=== PATIENT | female | born 1995 | race Caucasian/White ===

== ENCOUNTER 2018-05-01 12:08 | Emergency (ER) | payer OTHER, MEDICAID, SELFPAY ==
[2018-05-01 12:18] VITALS: BP 161/106; PULSE 98; RESP 14; TEMP 36.9; O2SAT 97; BMI 45.3
--- NOTE | 2018-05-01 12:22 | DI.RAD.S_ITS ---
PROCEDURE: XR SHOULDER LT MIN 2V INDICATIONS: GLF onto bilateral shoulder, Right hurts more than Left. TECHNIQUE: 3 views of the shoulder were acquired. COMPARISON: None. FINDINGS: Bones: No fractures or dislocations. No suspicious bony lesions. Visualized ribs appear intact. Soft tissues: No suspicious soft tissue calcifications. IMPRESSION: No acute osseous abnormality of the left shoulder. Dictated by: Kalpesh Fisher M.D. on 05/01/2018 at 11:48 Approved by: Kalpesh Fisher M.D. on 05/01/2018 at 11:48
--- NOTE | 2018-05-01 12:22 | DI.RAD.S_ITS ---
PROCEDURE: XR SHOULDER RT MIN 2V INDICATIONS: GLF onto bilateral shoulder, Right hurts more than Left. TECHNIQUE: 3 views of the shoulder were acquired. COMPARISON: None. FINDINGS: Bones: No fractures or dislocations. No suspicious bony lesions. Visualized ribs appear intact. No significant degenerative changes are evident. Soft tissues: No suspicious soft tissue calcifications. IMPRESSION: No acute osseous abnormality of the right shoulder. Dictated by: Kalpesh Fisher M.D. on 05/01/2018 at 11:48 Approved by: Kalpesh Fisher M.D. on 05/01/2018 at 11:49
--- NOTE | 2018-05-01 13:50 | ED.UPPEXIN ---
HPI - Extremity Injury (Upper) <CIERRA Nj - Last Filed: 05/01/18 21:30> General Chief Complaint: Extremity Injury, Upper Stated Complaint: fell in shower, right shoulder pain Time Seen by Provider: 05/01/18 13:30 History of Present Illness HPI narrative: 22-year-old female with history of type 2 diabetes and everyday smoker for complaint of pain into her bilateral shoulders since yesterday. She states that she slipped in the shower causing her to fall landing on head and to her bilateral shoulders she reports pain into the posterior right and left shoulders. She states that she did hit her head and she thinks she did lose consciousness briefly. She denies any nausea or vomiting. She is ambulatory into the emergency room. She denies any stressors or relievers of her discomfort. She denies having a headache today. She does report having some neck pain after the fall as well. MD complaint: injury to: shoulder Related Data Home Medications Medication Instructions Recorded Confirmed Allergy Medication 1 dose PO PRN PRN 05/01/18 05/01/18 glipizide 10 mg PO BID 05/01/18 05/01/18 metformin 500 mg PO TID 05/01/18 05/01/18 sertraline 50 mg PO BID 05/01/18 05/01/18 Allergies Allergy/AdvReac Type Severity Reaction Status Date / Time No Known Drug Allergies Allergy Verified 05/01/18 12:22 Review of Systems <CIERRA Nj - Last Filed: 05/01/18 21:30> Constitutional Denies chills, Denies fever(s), Denies lethargy and Denies weakness Eyes Denies change in vision, Denies eye discharge, Denies irritation and Denies loss of vision ENT Ears, Nose, Mouth, and Throat: Denies change in voice, Denies neck pain and Denies sore throat Cardiovascular Denies chest pain, Denies irregular heart rhythm, Denies lightheadedness, Denies palpitations, Denies dyspnea, Denies dyspnea on exertion and Denies orthopnea Respiratory Denies cough, Denies dyspnea, Denies dyspnea on exertion and Denies wheezing Gastrointestinal Gastrointestinal: Denies abdominal pain, Denies change in bowel habits, Denies diarrhea, Denies nausea and Denies vomiting Genitourinary Denies hematuria, Denies flank pain, Denies urinary incontinence and Denies urinary urgency Musculoskeletal Denies neck pain Comments: Bilateral shoulder pain after ground level fall posterior neck pain after ground level fall Integumentary/Breasts Denies pruritus, Denies erythema, Denies rash and Denies wounds Neurologic Denies confusion, Denies loss of vision and Denies weakness Comments: ground level fall hitting head. Psychiatric Denies anxiety, Denies confusion, Denies depression, Denies homicidal ideation and Denies suicidal ideation Endocrine Denies palpitations Hematologic/Lymphatic Denies easy bruising Allergic/Immunologic Denies wheezing Exam <CIERRA Nj - Last Filed: 05/01/18 21:30> Initial Vital Signs Initial Vital Signs: Vital Signs Temperature 98.5 F 05/01/18 12:18 Pulse Rate 98 H 05/01/18 12:18 Respiratory Rate 14 05/01/18 12:18 Blood Pressure 161/106 H 05/01/18 12:18 Pulse Oximetry 97 05/01/18 12:18 Const General: cooperative and well developed Nutritional Appearance: well nourished Orientation: alert, awake, oriented x3 and not confused HENAZ Mouth: oral mucosae normal and oropharynx normal Throat: abnormal tonsil ( Enlarged tonsils) bilaterally Eyes Conjunctivae: conjunctivae normal Sclera: sclerae normal Pupils: PERRL EOM: EOM intact bilaterally Resp Effort & Inspection: normal respiratory effort, able to speak in complete sentences, no respiratory distress and no use of accessory muscles Auscultation: clear to auscultation bilaterally, no rales, no rhonchi and no wheezes Cardio Rate: regular rate Rhythm: regular rhythm Heart Sounds: no click, no gallops, no murmurs and no rubs Pulses: normal peripheral pulses Skin General: no rashes or lesions noted, No jaundice and No petechiae Neuro General: alert, oriented x3, gait normal and no focal motor deficits Speech: speech normal Extrem Other: bilateral shoulders with no signs of trauma. No deformities. Distal CMS is intact. Distal pulses are intact. Distal sensation is intact. <Randy Morton DO - Last Filed: 05/02/18 08:49> Initial Vital Signs Initial Vital Signs: Vital Signs Temperature 98.5 F 05/01/18 12:18 Pulse Rate 98 H 05/01/18 12:18 Respiratory Rate 14 05/01/18 12:18 Blood Pressure 161/106 H 12/07/18 12:18 Pulse Oximetry 97 05/01/18 12:18 Course <CIERRA Nj - Last Filed: 05/01/18 21:30> Orders Ordered: ED Orders 05/01/18 14:14 CT cervical spine wo con Stat CT head/brain wo con Stat Vital Signs - 8 hr 05/01/18 14:11 05/01/18 15:20 Pulse Rate 106 H 98 H Respiratory Rate 16 18 Blood Pressure [Left Arm] 141/88 H Pulse Oximetry 98 100 <Randy Morton DO - Last Filed: 05/02/18 08:49> Orders Ordered: ED Orders 05/01/18 14:14 CT cervical spine wo con Stat CT head/brain wo con Stat Vital Signs - 8 hr 05/01/18 14:11 05/01/18 15:20 Pulse Rate 106 H 98 H Respiratory Rate 16 18 Blood Pressure [Left Arm] 141/88 H Pulse Oximetry 98 100 MDM - Extremity Injury (Upper) <CIERRA Nj - Last Filed: 05/01/18 21:30> Imaging Data c spine: Radiologist's impression: [address] [place] [address] CT Scan Report Signed Patient: Alma Bergman#: [id number] : 1995Acct:[id number] Age/Sex: 22 / FDate of Service: 05/01/18 Loc: ED Accession Number: [id number] Procedure: CT cervical spine wo con Ordering Provider: Perry Izaguirre PROCEDURE: CT CERVICAL SPINE WO CON INDICATIONS: pain to midline of C-spine after ground level fall last nig TECHNIQUE: Noncontrast 3 mm thick sections acquired from the skull base to the T4 level. Sagittal and coronal reformats were then constructed. For radiation dose reduction, the following was used: automated exposure control, adjustment of mA and/or kV according to patient size. COMPARISON: None. FINDINGS: Image quality: Excellent. Bones: No fractures or dislocations. Visualized superior ribs are intact. Soft tissues: Prevertebral soft tissues are normal in thickness. No paravertebral hematomas. No apical pneumothoraces. Marked prominence of the palatine tonsils. Multiple mildly enlarged bilateral level II, level III and level IV neck lymph nodes are noted. Enlarged left level V lymph nodes are noted. IMPRESSION: 1. No fracture. No acute osseous lesion. If symptoms and/or clinical suspicion for pathology persists, evaluation with MRI may be helpful for further assessment. 2. Prominent bilateral palatine tonsils which could be inflammatory or neoplastic. 3. Bilateral level II, level III, level IV and right level V neck lymphadenopathy which could be reactive or neoplastic. Dictated by: Evelyn David MD, PhD on 05/01/2018 at 14:32 Approved by: Evelyn David MD, PhD on 05/01/2018 at 14:39 L shoulder: Radiologist's impression: [facility]igned [facility] [id number] : 1995Acct:[id number] Age/Sex: 22 / FDate of Service: 05/01/18 Loc: ED Accession Number: [id number] Procedure: XR shoulder LT min 2V Ordering Provider: Randy Morton D.O. PROCEDURE: XR SHOULDER LT MIN 2V INDICATIONS: GLF onto bilateral shoulder, Right hurts more than Left. TECHNIQUE: 3 views of the shoulder were acquired. COMPARISON: None. FINDINGS: Bones: No fractures or dislocations. No suspicious bony lesions. Visualized ribs appear intact. Soft tissues: No suspicious soft tissue calcifications. IMPRESSION: No acute osseous abnormality of the left shoulder. Dictated by: Kalpesh Fisher M.D. on 05/01/2018 at 11:48 Approved by: Kalpesh Fisher M.D. on 05/01/2018 at 11:48 R shoulder: Radiologist's impression: [address] [address] XRay Report Signed [facility] [id number] : 1995Acct:[id number] Age/Sex: 22 / FDate of Service: 05/01/18 Loc: ED Accession Number: [id number] Procedure: XR shoulder RT min 2V Ordering Provider: Randy Morton D.O. PROCEDURE: XR SHOULDER RT MIN 2V INDICATIONS: GLF onto bilateral shoulder, Right hurts more than Left. TECHNIQUE: 3 views of the shoulder were acquired. COMPARISON: None. FINDINGS: Bones: No fractures or dislocations. No suspicious bony lesions. Visualized ribs appear intact. No significant degenerative changes are evident. Soft tissues: No suspicious soft tissue calcifications. IMPRESSION: No acute osseous abnormality of the right shoulder. Dictated by: Kalpesh Fisher M.D. on 05/01/2018 at 11:48 Approved by: Kalpesh Fisher M.D. on 05/01/2018 at 11:49 CT scan - head: Radiologist's impression: [address] [place] [address] [id number] [address] Scan Report Signed Patient: Alma Bergman#: [id number] : 1995Acct:[id number] Age/Sex: 22 / FDate of Service: 05/01/18 Loc: ED Accession Number: [id number] Procedure: CT head/brain wo con Ordering Provider: Perry Izaguirre PROCEDURE: CT HEAD/BRAIN WO CON INDICATIONS: ground level fall last night hitting head with loss of cons TECHNIQUE: Noncontrast 4.5 mm thick angled axial sections acquired from the foramen magnum to the vertex, with coronal and sagittal reformats. For radiation dose reduction, the following was used: automated exposure control, adjustment of mA and/or kV according to patient size. COMPARISON: None. FINDINGS: Image quality: Excellent. CSF spaces: Basal cisterns are patent. No extra-axial fluid collections. Ventricles are normal in size and shape. Brain: No midline shift. No intracranial masses or hemorrhage. Harding-white matter interface is normal. Skull and face: Calvarium and visualized facial bones are intact, without suspicious lesions. Sinuses: Mucosal thickening noted in the maxillary sinuses bilaterally and the right sphenoid sinus. The mastoids are clear. IMPRESSION: No acute intracranial disease process. Dictated by: Evelyn David MD, PhD on 05/01/2018 at 14:30 Approved by: Evelyn David MD, PhD on 05/01/2018 at 14:32 [facility] Narrative Medical decision making narrative: X-rays of the left right shoulder were obtained were negative for any acute findings. Due to head injury and a possible loss of consciousness head CT was obtained was negative for any acute findings. Patient had pain to her midline neck and a CT of the C-spine was obtained and was negative for any acute fractures however CT does show multiple significant lymphadenopathy to the neck area. Patient states she has had a sore throat over the past couple of days and does have allergies. She denies any fevers or chills. Discussed case with ENT Dr. Castellanos will follow up with patient next week. Patient to call the office and schedule follow-up appointment. For any worsening symptoms return emergency room. Use [id number] Tylenol as needed for any discomfort. Discharge Plan Departure Patient Disposition: Home Clinical Impression: Fall from ground level, Minor head injury with loss of consciousness, Contusion of right shoulder Discharge Date/Time: 05/01/18 15:21 Interventions: ED Discharge Assessment Last Done: 05/01/18 15:20 Instructions: DI for Closed Head Injury Activity Restrictions/Additional Instructions: x-rays of the shoulders were obtained were negative for any acute findings. CT of the head was obtained was also negative for any acute findings. Neck CT was obtained and showed no acute fractures. The CT of the neck does show multiple areas of swollen lymph nodes. you referred to ENT for further evaluation and treatment. Call the number at the number provided to schedule follow-up appointment next week. Use [id number] Tylenol as needed for any discomfort. For any worsening symptoms return emergency room. Head injury instructions are provided with warning signs to return to the emergency room. Prescriptions: No Action Allergy Medication 1 dose PO PRN PRN (Reason: Allergy Symptoms) RF: 0 metformin 500 mg Tablet 500 mg PO TID RF: 0 glipizide 10 mg Tablet 10 mg PO BID RF: 0 sertraline 100 mg Tablet 50 mg PO BID RF: 0 Referrals: Mendez Castellanos MD [Physician] - Stand Alone Forms: Work Release Note <Randy Morton DO - Last Filed: 05/02/18 08:49> Cosign ED Attending Joanneature Attestation: I was immediately available in the department for consultation. Documentation has been reviewed. I agree with assessment and plan.
[2018-05-01 14:11] VITALS: BP 141/88; PULSE 106; RESP 16; O2SAT 98
--- NOTE | 2018-05-01 14:14 | DI.CT.S_ITS ---
PROCEDURE: CT CERVICAL SPINE WO CON INDICATIONS: pain to midline of C-spine after ground level fall last nig TECHNIQUE: Noncontrast 3 mm thick sections acquired from the skull base to the T4 level. Sagittal and coronal reformats were then constructed. For radiation dose reduction, the following was used: automated exposure control, adjustment of mA and/or kV according to patient size. COMPARISON: None. FINDINGS: Image quality: Excellent. Bones: No fractures or dislocations. Visualized superior ribs are intact. Soft tissues: Prevertebral soft tissues are normal in thickness. No paravertebral hematomas. No apical pneumothoraces. Marked prominence of the palatine tonsils. Multiple mildly enlarged bilateral level II, level III and level IV neck lymph nodes are noted. Enlarged left level V lymph nodes are noted. IMPRESSION: 1. No fracture. No acute osseous lesion. If symptoms and/or clinical suspicion for pathology persists, evaluation with MRI may be helpful for further assessment. 2. Prominent bilateral palatine tonsils which could be inflammatory or neoplastic. 3. Bilateral level II, level III, level IV and right level V neck lymphadenopathy which could be reactive or neoplastic. Dictated by: Evelyn David MD, PhD on 05/01/2018 at 14:32 Approved by: Evelyn David MD, PhD on 05/01/2018 at 14:39
--- NOTE | 2018-05-01 14:14 | DI.CT.S_ITS ---
PROCEDURE: CT HEAD/BRAIN WO CON INDICATIONS: ground level fall last night hitting head with loss of cons TECHNIQUE: Noncontrast 4.5 mm thick angled axial sections acquired from the foramen magnum to the vertex, with coronal and sagittal reformats. For radiation dose reduction, the following was used: automated exposure control, adjustment of mA and/or kV according to patient size. COMPARISON: None. FINDINGS: Image quality: Excellent. CSF spaces: Basal cisterns are patent. No extra-axial fluid collections. Ventricles are normal in size and shape. Brain: No midline shift. No intracranial masses or hemorrhage. Harding-white matter interface is normal. Skull and face: Calvarium and visualized facial bones are intact, without suspicious lesions. Sinuses: Mucosal thickening noted in the maxillary sinuses bilaterally and the right sphenoid sinus. The mastoids are clear. IMPRESSION: No acute intracranial disease process. Dictated by: Evelyn David MD, PhD on 05/01/2018 at 14:30 Approved by: Evelyn David MD, PhD on 05/01/2018 at 14:32
[2018-05-01 15:20] VITALS: PULSE 98; RESP 18; O2SAT 100
== END 2018-05-01 15:21 | disposition home or self-care (01) ==
PROVIDERS: Emergency Provider Nurse Practitioner Family
DX: S06.9X9A Unspecified intracranial injury with loss of consciousness of unspecified duration, initial encounter (principal); S40.011A Contusion of right shoulder, initial encounter; W18.2XXA Fall in (into) shower or empty bathtub, initial encounter
CPT/HCPCS: 70450; 72125; 73030; 99283; 99284; 99291

== ENCOUNTER 2019-03-18 10:47 | Emergency (ER) | payer OTHER, MEDICAID, SELFPAY ==
[2019-03-18 10:55] VITALS: BP 125/83; PULSE 84; RESP 14; TEMP 36.7; O2SAT 98; BMI 44.2
--- NOTE | 2019-03-18 10:55 | DI.RAD.S_ITS ---
PROCEDURE: XR WRIST LT MIN 3V INDICATIONS: pain TECHNIQUE: 4 views of the wrist were acquired. COMPARISON: None. FINDINGS: Bones: No displaced fractures or dislocations. No suspicious bony lesions. Ulnar minus appearance is incidentally noted by approximately 3 mm. Soft tissues: No suspicious soft tissue calcifications. IMPRESSION: No acute fractures of the wrist. Dictated by: Kalpesh Fisher M.D. on 03/18/2019 at 10:17 Approved by: Kalpesh Fisher M.D. on 03/18/2019 at 10:19
--- NOTE | 2019-03-18 11:07 | ED.UPPEXIN ---
HPI - Extremity Injury (Upper) <Nusrat Reaves PA-C - Last Filed: 03/18/19 20:24> General Chief Complaint: Extremity Injury, Upper Stated Complaint: hurt wrist Time Seen by Provider: 03/18/19 11:06 Source: patient Mode of arrival: Ambulatory Limitations: no limitations History of Present Illness HPI narrative: This 23-year-old female comes to ED secondary to left wrist injury that occurred 2 days ago. She states that she tripped fell hitting her outstretched left wrist on a metal counter. She states that she thought it was just contused however she has developed a painful lump and concerned about a fracture. She states initially she was unable to move her thumb but now able to. She states that she does not have any weakness or paresthesia, pain keeps her from moving. She did take naproxen 1st day which was helpful. She reports her tetanus vaccine is up-to-date. She denies any other injury, no pain in the fingers or upper arm. She denies any possibility . Related Data Home Medications Medication Instructions Recorded Confirmed Allergy Medication 1 dose PO PRN PRN 05/01/18 05/01/18 glipizide 10 mg PO BID 05/01/18 05/01/18 metformin 500 mg PO TID 05/01/18 05/01/18 sertraline 50 mg PO BID 05/01/18 05/01/18 Previous Rx's Medication Instructions Recorded naproxen 500 mg PO Q12H PRN #20 tab 03/18/19 Allergies Allergy/AdvReac Type Severity Reaction Status Date / Time No Known Drug Allergies Allergy Verified 03/18/19 10:55 Review of Systems <Nusrat Reaves PA-C - Last Filed: 03/18/19 20:24> Review of Systems ROS Unobtainable: All systems reviewed & are unremarkable except as noted in HPI and below Patient History <Nusrat Reaves PA-C - Last Filed: 03/18/19 20:24> Medical History (Updated 03/18/19 @ 11:38 by Nusrat Reaves PA-C) Anxiety and depression (Inactive) Non-insulin dependent type 2 diabetes mellitus (Inactive) Surgical History (Updated 03/18/19 @ 11:22 by Nusrat Reaves PA-C) No history of previous surgery (Chronic) Social History Smoking Status: Current every day smoker alcohol intake frequency: 0-2 drinks per day Substance Use Type: marijuana Exam <uNsrat Reaves PA-C - Last Filed: 03/18/19 20:24> Narrative Exam Narrative: GENERAL APPEARANCE: Patient sitting comfortably, in no distress. MUSCULOSKELETAL: Left anterior wrist lateral midline there is a tender area of soft tissue swelling with marked overlying tenderness. Reduced wrist range of motion in all holloway secondary to tenderness. She has full range of motion of the fingers. Some slightly reduced but thumb tendon strength intact in all holloway against resistance. No tenderness over the hand, forearm or elbow where there is full range of motion. DERM: L. wrist midline lateral small scab and faint ecchymoses. No other visible skin lesions NEUROVASC: Left hand fingers warm and pink with brisk cap refill, sensation grossly intact Initial Vital Signs Initial Vital Signs: Vital Signs Temperature 98.1 F 03/18/19 10:55 Pulse Rate 84 03/18/19 10:55 Respiratory Rate 14 03/18/19 10:55 Blood Pressure 125/83 03/18/19 10:55 Pulse Oximetry 98 03/18/19 10:55 <DO Norman Padron Last Filed: 03/19/19 07:06> Initial Vital Signs Initial Vital Signs: Vital Signs Temperature 98.1 F 03/18/19 10:55 Pulse Rate 84 03/18/19 10:55 Respiratory Rate 14 03/18/19 10:55 Blood Pressure 125/83 03/18/19 10:55 Pulse Oximetry 98 03/18/19 10:55 Course <Nusrat Reaves PA-C - Last Filed: 03/18/19 20:24> Orders Ordered: ED Orders 03/18/19 10:55 XR wrist LT min 3V Stat Vital Signs Vital signs: Vital Signs - 8 hr 03/18/19 10:55 Temperature 98.1 F Pulse Rate 84 Respiratory Rate 14 Blood Pressure 125/83 Pulse Oximetry 98 <DO Norman Padron Last Filed: 03/19/19 07:06> Orders Ordered: ED Orders 03/18/19 10:55 XR wrist LT min 3V Stat Vital Signs Vital signs: Vital Signs - 8 hr 03/18/19 10:55 Temperature 98.1 F Pulse Rate 84 Respiratory Rate 14 Blood Pressure 125/83 Pulse Oximetry 98 MDM - Extremity Injury (Upper) <Nusrat Reaves PA-C - Last Filed: 03/18/19 20:24> Imaging Data wrist: Radiologist's impression: [address] [address] XRay Report Signed Patient: Alma Bergman#: [id number] : 1995Acct:[id number] Age/Sex: 23 / FDate of Service: 03/18/19 Loc: ED Accession Number: [id number] Procedure: XR wrist LT min 3V Ordering Provider: Raciel Gonzales D.O. PROCEDURE: XR WRIST LT MIN 3V INDICATIONS: pain TECHNIQUE: 4 views of the wrist were acquired. COMPARISON: None. FINDINGS: Bones: No displaced fractures or dislocations. No suspicious bony lesions. Ulnar minus appearance is incidentally noted by approximately 3 mm. Soft tissues: No suspicious soft tissue calcifications. IMPRESSION: No acute fractures of the wrist. Dictated by: Kalpesh Fisher M.D. on 03/18/2019 at 10:17 Approved by: Kalpesh Fisher M.D. on 03/18/2019 at 10:19 Discharge Plan Departure Patient Disposition: Home Clinical Impression: Sprain and strain of wrist, Contusion of left wrist, initial encounter Discharge Date/Time: 03/18/19 11:58 Instructions: DI for Wrist Sprain Activity Restrictions/Additional Instructions: Please wear the splint we gave you 16/12 to help with pain and protect the wrist, at least until it is feeling better and your movement is back to normal. I think as the swelling goes down and you rest the wrist, pain should get better. You can continue naproxen twice daily (I did send some into [facility] for you). If this is not continuing to make progress, please follow-up with your PCP in a week or so to repeat exam and you may need repeat x-rays as we discussed. Prescriptions: New naproxen 500 mg tablet 500 mg PO Q12H PRN (Reason: wrist pain/swelli) Qty: 20 RF: 0 No Action Allergy Medication 1 dose PO PRN PRN (Reason: Allergy Symptoms) RF: 0 metformin 500 mg Tablet 500 mg PO TID RF: 0 glipizide 10 mg Tablet 10 mg PO BID RF: 0 sertraline 100 mg Tablet 50 mg PO BID RF: 0 Referrals: Russell PENG [Other] <Raciel Gonzales, - Last Filed: 03/19/19 07:06> Sign Out Provider Sign Out Attestation: I was available for consultation during this patient's emergency department visit. This chart is signed by myself for administrative purposes only. I did not have direct contact with this patient during this visit. They were seen independently by the APC.
== END 2019-03-18 11:58 | disposition home or self-care (01) ==
PROVIDERS: Emergency Provider Internal Medicine
DX: S63.502A Unspecified sprain of left wrist, initial encounter (principal); S66.912A Strain of unspecified muscle, fascia and tendon at wrist and hand level, left hand, initial encounter; S60.212A Contusion of left wrist, initial encounter; W01.190A Fall on same level from slipping, tripping and stumbling with subsequent striking against furniture, initial encounter
CPT/HCPCS: 29260; 73110; 99282; 99283

== ENCOUNTER 2021-08-27 11:16 | Emergency (ER) | payer MEDICARE, MEDICAID, SELFPAY ==
[2021-08-27 11:31] VITALS: BP 139/88; PULSE 103; RESP 20; TEMP 36.6; O2SAT 98; BMI 39.8
--- NOTE | 2021-08-27 11:38 | DI.RAD.S_ITS ---
PROCEDURE: XR RIBS LT MIN 3V W CXR1V INDICATIONS: Suspected rib fracture TECHNIQUE: 2 views of the left ribs were acquired, along with a single view chest. COMPARISON: None. FINDINGS: Surgical changes and devices: None. Bones and chest wall: Possible nondisplaced left 6th rib fracture. No suspicious bony lesions. Overlying soft tissues appear unremarkable. Lungs and pleura: No pleural effusions or pneumothorax. Lungs appear clear. Mediastinum: Mediastinal contours appear normal. Heart size is normal. IMPRESSION: Possible mondisplaced left 6th rib fracture. Dictated by: Mery Wong M.D. on 08/27/2021 at 12:27 Approved by: Mery Wong M.D. on 08/27/2021 at 12:31
--- NOTE | 2021-08-27 12:44 | ED_ITS ---
HPI - Chest Pain <CIERRA Benites - Last Filed: 08/27/21 13:29> General Chief Complaint: Chest Pain Stated Complaint: Fell last week and having pain in left ribcage Time Seen by Provider: 08/27/21 12:06 Source: patient Mode of arrival: Ambulatory Limitations: no limitations History of Present Illness HPI narrative: This is a 26-year-old female with history of type 2 diabetes, anxiety depression, not currently on any medications who presents to the emergency department who had a fall last week and is complaining of left anterior and posterior rib pain since her fall. She denies any shortness of breath, she denies any fever, she denies any open wound, she states that it generally aches about a 4/10. She denies being on any current medications for her diabetes, anxiety or depression. She states that she quit her BuSpar and her sertraline cold turkey 6 months ago. She denies having a primary care provider or therapist at this time and states that she would like to establish care with 1 of both. She states that she has been using THC daily, ibuprofen, and Tylenol for her pain, and this is been fairly adequate she was worried that something else was wrong because she had this ongoing pain. Related Data Home Medications Medication Instructions Recorded Confirmed Allergy Medication 1 dose PO PRN PRN 05/01/18 05/01/18 glipizide 10 mg tablet 10 mg PO BID 05/01/18 05/01/18 metformin 500 mg tablet 500 mg PO TID 05/01/18 05/01/18 sertraline 100 mg tablet 50 mg PO BID 05/01/18 05/01/18 Previous Rx's Medication Instructions Recorded naproxen 500 mg tablet 500 mg PO Q12H PRN #20 tab 03/18/19 lidocaine 5 % topical patch 1 patch TOPICAL DAILY PRN #15 ea 08/27/21 (Lidoderm) naproxen 500 mg tablet 500 mg PO BID PRN #30 tab 08/27/21 Allergies Allergy/AdvReac Type Severity Reaction Status Date / Time No Known Drug Allergies Allergy Verified 03/18/19 10:55 Review of Systems <CIERRA Benites - Last Filed: 08/27/21 13:29> Review of Systems Narrative: General: denies fever, chills Head/Neck: denies headache, neck pain Eyes: denies visual changes, eye pain Cardio: denies chest pain, palpitations Respiratory: denies shortness of breath, cough, difficulty taking deep breath, or painful breathing. GI: denies abdominal pain, nausea, vomiting, or diarrhea : denies dysuria, hematuria MSK: denies joint pain, muscle weakness Skin: denies rash, itching Neuro: denies numbness, tingling Patient History <CIERRA Benites - Last Filed: 08/27/21 13:29> Medical History Anxiety and depression Non-insulin dependent type 2 diabetes mellitus Surgical History No history of previous surgery Social History Smoking Status: Former smoker Smoking Status: Former smoker alcohol intake frequency: 0-2 drinks per day Substance Use Type: marijuana Exam <CIERRA Benites - Last Filed: 08/27/21 13:29> Narrative Exam Narrative: Independently reviewed vitals signs and nursing notes. General: Awake, alert, nontoxic, no cardiorespiratory distress Head/Neck: Atraumatic, neck full range of motion Eyes: EOMI, conjunctiva normal Nose: nares patent, no rhinorrhea Mouth/Throat: moist mucus membranes, no oral lesions Cardio: Regular rate and rhythm, no peripheral edema Respiratory: respirations unlabored without wheezing, stridor, or rales, no crackles auscultated bilaterally, clear breath sounds present in all lobes without muffled sounds, crepitus, or stridor. No retractions., chest without ecchymosis, open wound, tenderness to palpation over posterior left 6th rib GI: Abdomen soft, nontender to palpation MSK: Moves all extremities, neurovascularly intact Skin: Normal capillary refill, no rash Neuro: Normal speech and cognition, normal gait Initial Vital Signs Initial Vital Signs: Vital Signs Temperature 97.9 F 08/27/21 11:31 Pulse Rate 103 H 08/27/21 11:31 Respiratory Rate 20 08/27/21 11:31 Blood Pressure 139/88 08/27/21 11:31 Pulse Oximetry 98 08/27/21 11:31 <Laurel Theodore DO - Last Filed: 08/27/21 19:17> Initial Vital Signs Initial Vital Signs: Vital Signs Temperature 97.9 F 08/27/21 11:31 Pulse Rate 103 H 08/27/21 11:31 Respiratory Rate 20 08/27/21 11:31 Blood Pressure 139/88 08/27/21 11:31 Pulse Oximetry 98 08/27/21 11:31 Course <CIERRA Benites - Last Filed: 08/27/21 13:29> Orders Ordered: ED Orders 08/27/21 11:38 XR ribs LT min 3V w CXR1V Stat 08/27/21 12:44 Consult to [facility] - College Admissions Counselor Stat Discontinued Medications Acetaminophen (Acetaminophen 325 Mg Tablet) 975 mg PO NOW ONE Stop: 08/27/21 12:44 Last Admin: 08/27/21 12:51 Dose: 975 mg Documented by: BTONER Ketorolac Tromethamine (Ketorolac 30 Mg/Ml Vial) 15 mg IM NOW ONE Stop: 08/27/21 12:44 Last Admin: 08/27/21 12:50 Dose: 15 mg Documented by: BTONER Lidocaine (Lidocaine Patch 1 Each Adh..Patch) 1 each TOP NOW ONE Stop: 08/27/21 12:36 Last Admin: 08/27/21 12:49 Dose: 1 each Documented by: BTONER Vital Signs Vital signs: Vital Signs - 8 hr 08/27/21 11:31 Temperature 97.9 F Pulse Rate 103 H Respiratory Rate 20 Blood Pressure 139/88 Pulse Oximetry 98 <Laurel Theodore DO - Last Filed: 08/27/21 19:17> Orders Ordered: ED Orders 08/27/21 11:38 XR ribs LT min 3V w CXR1V Stat 08/27/21 12:44 Consult to [facility] - College Admissions Counselor Stat Discontinued Medications Acetaminophen (Acetaminophen 325 Mg Tablet) 975 mg PO NOW ONE Stop: 08/27/21 12:44 Last Admin: 08/27/21 12:51 Dose: 975 mg Documented by: BTONER Ketorolac Tromethamine (Ketorolac 30 Mg/Ml Vial) 15 mg IM NOW ONE Stop: 08/27/21 12:44 Last Admin: 08/27/21 12:50 Dose: 15 mg Documented by: JACOB Lidocaine (Lidocaine Patch 1 Each Adh..Patch) 1 each TOP NOW ONE Stop: 08/27/21 12:36 Last Admin: 08/27/21 12:49 Dose: 1 each Documented by: JACOB Vital Signs Vital signs: Vital Signs - 8 hr 08/27/21 11:31 Temperature 97.9 F Pulse Rate 103 H Respiratory Rate 20 Blood Pressure 139/88 Pulse Oximetry 98 [facility] - Chest Pain <CIERRA Benites - Last Filed: 08/27/21 13:29> Imaging Data Chest x-ray: Radiologist's Impression: PROCEDURE:? XR RIBS LT MIN 3V W CXR1V ? INDICATIONS:? Suspected rib fracture ? TECHNIQUE:? 2 views of the left ribs were acquired, along with a single view chest.? ? COMPARISON:? None. ? FINDINGS:? ? Surgical changes and devices:? None.? ? Bones and chest wall:? Possible nondisplaced left 6th rib fracture.? No suspicious bony lesions.? Overlying soft tissues appear unremarkable.? ? Lungs and pleura:? No pleural effusions or pneumothorax.? Lungs appear clear.? ? Mediastinum:? Mediastinal contours appear normal.? Heart size is normal.? ? IMPRESSION:? Possible mondisplaced left 6th rib fracture. ? ? Dictated by: Mery Wong M.D. on 08/27/2021 at 12:27 ? ? Approved by: Mery Wong M.D. on 08/27/2021 at 12:31 ? [facility] Narrative Medical decision making narrative: This is a 26-year-old female came into the emergency department 1 week after fall with left rib pain. X-ray shows a possible nondisplaced left 6th rib fracture, this is where patient had tenderness on exam. No ecchymosis, open wound, pneumothorax, pleural effusion, abnormal breath sounds, shortness of breath, wheezing, or other respiratory symptoms. Patient requests a prescri ption of naproxen, she was also given a prescription of lidocaine patches, a social work referral was placed as patient is looking for a therapist, she was given contact information for [facility], and primary care to establish care with a new provider. Patient is appropriate and amenable to discharge home. Vital signs are stable on repeat examination is unremarkable. Patient has been informed of results. Patient has been given strict return to ER precautions for any new or worsening symptoms. Patient understands to follow up closely with outpatient providers as instructed. Patient understands plan and agrees to discharge home. All questions and concerns answered at this time. Discharge Plan Departure Patient Disposition: Home Clinical Impression: Fall Qualifiers: Encounter type: initial encounter Qualified Code(s): W19.XXXA - Unspecified fall, initial encounter Closed rib fracture Qualifiers: Encounter type: initial encounter Rib fracture type: single rib Laterality: left Qualified Code(s): S22.32XA - Fracture of one rib, left side, initial encounter for closed fracture Instructions: Rib Fracture Activity Restrictions/Additional Instructions: *You have been diagnosed with a closed rib fracture of your left 6th rib, it is not displaced. Please use lidocaine patches and Voltaren gel in addition to Tylenol and naproxen for your pain. Please do not take ibuprofen with naproxen. Please do not take any naproxen today, since you received Toradol in the em ergency department. Please stay hydrated, remember to eat food and drink water when you take naproxen for the risk of stomach ulcer. Please remember to try and stay active so that you do not get stiff, also to keep your blood sugars lower, eat a healthy diet with low carbs. Please call [phone] to establish care with a primary care provider. Please call [facility] a counselor, mental health evaluation, or other resources as needed. Your doing a good job taking care of yourself, thank you for trusting us with your care. I have placed a social work referral for you, they may call and ask if you need any more resources. *What to do: *Please continue to take your regular medications as directed. [ x] New medication prescriptions sent to your pharmacy: [[facility] ] [ ] New medication written as a paper prescription [ ] No new medications given *Please follow up with your primary care provider in 2-3 days, call for an charmaine ointment. Let them know you were seen in the Emergency Department and that we asked that you be seen for follow-up. We will electronically transmit a record of today's note if your PCP is in our system *If you do not have a primary care provider please contact [phone] to establish care with one of the [facility] primary care providers. *Return to Emergency Department if you should have any new, worsening or concerning symptoms, such as [fever greater than 101F, chills, worsening pain, persistent vomiting or other bothersome symptoms] Prescriptions: New naproxen 500 mg tablet 500 mg PO BID PRN (Reason: pain) Qty: 30 0RF Rx Instructions: take with food and water lidocaine [Lidoderm] 5 % adhesive patch,medicated 1 patch topical DAILY PRN (Reason: pain) Qty: 15 0RF Rx Instructions: leave on most painful area for up to 12 hrs No Action naproxen 500 mg tablet 500 mg PO Q12H PRN (Reason: wrist pain/swelli) Qty: 20 0RF Allergy Medication 1 dose PO PRN PRN (Reason: Allergy Symptoms) 0RF Label Comments: Generic OTC allergy med. Patient does not know name. metformin 500 mg Tablet 500 mg PO TID 0RF glipizide 10 mg Tablet 10 mg PO BID 0RF sertraline 100 mg Tablet 50 mg PO BID 0RF Referrals: [facility] [Provider Group] <Laurel Theodore DO - Last Filed: 08/27/21 19:17> Cosign ED Attending Joanneature Attestation: I was immediately available in the department for consultation. Documentation has been reviewed.
[2021-08-27] MEDS: LIDOCAINE PATCH 1 EACH ADH..PATCH TOP (12:49)
[2021-08-27] MEDS: KETOROLAC 30 MG/ML VIAL 15 MG IM (12:50)
[2021-08-27] MEDS: ACETAMINOPHEN 325 MG TABLET 975 MG PO (12:51)
== END 2021-08-27 13:11 | disposition home or self-care (01) ==
PROVIDERS: Emergency Provider Nurse Practitioner Critical Care Medicine
DX: S22.32XA Fracture of one rib, left side, initial encounter for closed fracture (principal); W19.XXXA Unspecified fall, initial encounter
CPT/HCPCS: 71101; 96372; 99283; J1885